=== PATIENT | male | born 1995 | race Two or more races ===

== ENCOUNTER 2019-04-29 12:32 | Emergency (ER) | payer SELFPAY ==
[~2019-04-29] VITALS: Ht 193 cm; Wt 86.2 kg
[2019-04-29 12:45] VITALS: BP 127/72; Ht 193 cm; Wt 86.2 kg
== END 2019-04-29 13:50 | disposition left against medical advice (07) ==
LOC: ED 12:32
DX: S90.822A Blister (nonthermal), left foot, initial encounter (principal); S90.821A Blister (nonthermal), right foot, initial encounter; X58.XXXA Exposure to other specified factors, initial encounter; Y93.89 Activity, other specified; Y92.89 Other specified places as the place of occurrence of the external cause; Y99.8 Other external cause status

== ENCOUNTER 2019-04-29 15:49 | Emergency (ER) | payer SELFPAY ==
[~2019-04-29] VITALS: Ht 193 cm; Wt 76.7 kg
[2019-04-29 16:37] VITALS: BP 139/70
== END 2019-04-29 17:21 | disposition left against medical advice (07) ==
LOC: ED 15:49
DX: Z53.21 Procedure and treatment not carried out due to patient leaving prior to being seen by health care provider (principal)